=== PATIENT | female | born 1980 | race Caucasian/White ===

== ENCOUNTER 2023-06-11 22:52 | Observation (INO) | payer OTHER ==
[~2023-06-11] VITALS: Ht 170.2 cm; Wt 108.9 kg
[2023-06-11] MEDS ORDERED: PROP10 PO (23:05)
[2023-06-11] MEDS ORDERED: LAMO100 PO (23:05)
[2023-06-11] MEDS ORDERED: SERT100 PO (23:06)
[2023-06-11] MEDS ORDERED: ZIPR80 PO (23:06)
[2023-06-11] MEDS ORDERED: MINIPRESS2 M1 PO (23:06)
[2023-06-11] MEDS ORDERED: TRAZ100 PO (23:06)
[2023-06-11] MEDS ORDERED: CLON.5 PO (23:07)
[2023-06-11] MEDS ORDERED: METPHE20 PO (23:07)
[2023-06-11] MEDS ORDERED: RIZATRIPTAN10 MG SL (23:08)
[2023-06-11] MEDS ORDERED: MONT10T PO (23:08)
[2023-06-11] MEDS ORDERED: FLUT1DIS2 (23:08)
[2023-06-11] MEDS ORDERED: FLUTICASONE-SA1 EAC1 (23:08)
[2023-06-11] MEDS ORDERED: LORA10ER PO (23:08)
[2023-06-11 23:25] LABS: BASOPHILS ABSOLUTE AUTO 0.03 K/mm3 (0.00-0.23); BASOPHILS PERCENT AUTO 0 % (0-2); EOSINOPHILS ABSOLUTE AUTO 0.21 K/mm3 (0.00-0.68); EOSINOPHILS PERCENT AUTO 2 % (0-6); Hematocrit 45.1 % (33.0-51.0); Hemoglobin 15.2 g/dL (11.5-16.0); IMMATURE GRAN ABSOLUTE AUTO 0.04 K/mm3 (0.00-0.10); IMMATURE GRAN PERCENT AUTO 0 % (0-1); LYMPHOCYTES ABSOLUTE AUTO 3.07 K/mm3 (0.84-5.20); LYMPHOCYTES PERCENT AUTO 23 % (21-46); MONOCYTES ABSOLUTE AUTO 0.64 K/mm3 (0.16-1.47); MONOCYTES PERCENT AUTO 5 % (4-13); Mean Corpuscular HGB 30.5 pg (26.0-34.0); Mean Corpuscular HGB Conc 33.7 g/dL (31.5-36.5); Mean Corpuscular Volume 90 fL (80-100); Mean Platelet Volume 9.8 fL (9.1-12.4); NEUTROPHILS ABSOLUTE AUTO 9.42 K/mm3 (1.96-9.15); NEUTROPHILS PERCENT AUTO 70 % (41-73); Platelet Count 296 K/mm3 (150-400); RDW Coefficient Variation 15.3 % (11.7-14.2); RDW Standard Deviation 50.9 fL (35.1-46.3); Red Blood Cell Count 4.99 M/mm3 (3.80-5.20); White Blood Cell Count 13.41 K/mm3 (4.00-11.30)
[2023-06-11 23:56] LABS: Ethanol (Alcohol), Blood, Med <3 mg/dL; Salicylate 5.3 mg/dL (2.8-20.0); Thyroxine (T4) 8.3 ug/dL (4.8-13.9)
[2023-06-12 00:04] LABS: Alanine Aminotransfer (ALT/SGP 37 U/L (12-78); Albumin, Blood 3.7 g/dL (3.4-5.0); Alk Phos 97 U/L (50-136); Anion Gap 8 mmol/L (3-11); Aspartate Aminotrans (AST/SGOT 22 U/L (12-37); Bilirubin, Total 0.3 mg/dL (0.1-1.0); Blood Urea Nitrogen 4 mg/dL (8-24); Bun/Creatinine Ratio 5.7 (12.0-20.0); CO2, Blood 31 mmol/L (21-32); Calcium, Blood 9.2 mg/dL (8.5-10.1); Chloride, Blood 102 mmol/L (98-108); Globulin, Blood 3.8 g/dL (2.2-4.0); Glomerular Filtration Rate 111 (60-); Glucose, Blood 139 mg/dL (70-99); Potassium, Blood 3.6 mmol/L (3.5-5.5); Sodium, Blood 137 mmol/L (136-145); Total Protein, Blood 7.5 g/dL (6.4-8.2)
[2023-06-12 00:06] LABS: Acetaminophen, Random <2.0 ug/mL (10.0-30.0)
[2023-06-12 00:20] LABS: Source, Urine Voided
[2023-06-12 00:25] LABS: Bilirubin, Urine Neg (Neg); Blood, Urine Neg (Neg); Glucose Qualitative, Urine Neg (Neg); Ketones, Urine 1+ (Neg); Leukocyte Esterase, Urine 1+ (Neg); Nitrite, Urine Neg (Neg); Protein, Urine 2+ (Neg); Urobilinogen, Urine 1+ (Normal)
[2023-06-12 00:47] LABS: U Amphetamine Screen Not Detected; U Barbituate Screen Not Detected; U Benzodiazapine Screen Not Detected; U Buprenorphine Screen Not Detected; U Cannabinoids Screen DETECTED; U Cocaine Screen Not Detected; U Methadone Screen Not Detected; U Methamphetamine Screen Not Detected; U Opiates Screen Not Detected; U Oxycodone Screen Not Detected; U Phencyclidine Screen Not Detected
[2023-06-12 00:49] LABS: Appearance, Urine Turbid (Clear); Color, Urine Yellow (P-Yellow)
[2023-06-12 00:50] LABS: Bacteria Many /hpf; Red Blood Cells, Urine 0-2 /hpf (0-2); Squamous Epithelial Cells Mod /hpf (Few); White Blood Cells, Urine 0-2 /hpf (0-5)
[2023-06-12] MEDS ORDERED: TraZODone HCl 100 MG Tab PO ONE (01:15)
[2023-06-12] MEDS ORDERED: SERT50 PO (11:20)
[2023-06-12] MEDS ORDERED: LAMO100 PO (11:20)
== END 2023-06-12 11:42 | disposition home or self-care (01) ==
LOC: ER 22:52 → EOR 22:53
PROVIDERS: Physician Assistant; ADMIT Emergency Medicine
DX: F33.1 Major depressive disorder, recurrent, moderate (principal); Z79.899 Other long term (current) drug therapy
CPT/HCPCS: 80053; 81001; 84436; 84443; 84703; 85025; 86592; 87086; 99285; A9270; G0378; G0480